=== PATIENT | male | born 1975 | race Caucasian/White ===

== ENCOUNTER 2020-10-22 13:50 | Observation (INO) ==
--- OUTSIDE RECORDS SUMMARY | 2020-10-22 13:54 | External Medical Summary | Continuity of Care Document ---
:1975 Author Name José Miguel Díaz, Provider Address Unavailable Unavailable , Care Team Providers Name Role Phone Unavailable Unavailable Unavailable Monet Díaz, Devonte Unavailable [email or web address] PCP, NO Unavailable Unavailable Unavailable Unavailable Unavailable Problems Back pain (724.5) (M54.9) Dyspnea on exertion (786.09) (R06.00) Hypertriglyceridemia (272.1) (E78.1) Hypertension (401.9) (I10) Allergies and Adverse Reactions No Known Drug Allergies (Allergy) Medications Aspirin EC 81 MG Oral Tablet Delayed Release; TAKE 1 TABLET DAILY. Arjun Refills: 0 Losartan Potassium 100 MG Oral Tablet; TAKE 1 TABLET B Y MOUTH EVERY DAY Arjun Healy Start: 24-Jan-2016 Quantity: 90 Refills: 3 hydroCHLOROthiazide 25 MG Oral Tablet; take 1 tablet b y mouth every morning Arjun Healy Start: 14-Dec-2017 Quantity: 90 Refills: 3 Procedures History of Oral Surgery Tooth Extraction Status: Completed Immunizations Immunizations not documented Family History Unknown Family Member Family history of hypertension (V17.49) Status: Active Comments: Family History (Z82.49) Family history of cardiac disorder (V17.49) Status: Active Comments: Family History (Z82.49) Social History - Smoking Status Never smoked tobacco Plan of Treatment Planned Observations Planned Goals not documented Results No Known Results Results not documented
--- OUTSIDE RECORDS SUMMARY | 2020-10-22 13:54 | External Medical Summary | Continuity of Care Document ---
:1975 Author Name José Miguel Díaz, Provider Address Unavailable Unavailable , Care Team Providers Name Role Phone Unavailable Unavailable Unavailable Monet Díaz, Devonte Unavailable [email or web address] PCP, NO Unavailable Unavailable Unavailable Unavailable Unavailable Problems Hypertension (401.9) (I10) Back pain (724.5) (M54.9) Hypertriglyceridemia (272.1) (E78.1) Dyspnea on exertion (786.09) (R06.00) Allergies and Adverse Reactions No Known Drug [...]
--- NOTE | 2020-10-22 14:22 | CT Scan Report ---
CT head/brain wo con CLINICAL HISTORY: 45 years-old Male with Stroke Alert. Acute strokelike symptoms TECHNIQUE: Multiple axial CT images of the head were obtained without contrast. A dose lowering tech nique was utilized adhering to the principles of ALARA. CT DOSE: 614.27 mGy.cm COMPARISON: None. FINDINGS: No acute intracranial hemorrhage, midline shift, intracranial mass, hydrocephalus, territorial ischem ia or abnormal extra-axial collection. The calvarium is intact. Mastoid air cells are clear. Minimal mucosal thickening of the and paranasa l sinuses. Soft tissues are unremarkable. IMPRESSION: No acute intracranial abnormality. ACT 112: Negative or not required by law. The above report was generated using voice recognition software. It may contain grammatical, syntax o r spelling errors. Electronically signed by: Indio Hughes M.D. 10/22/2020 2:20 PM
[2020-10-22] MEDS ORDERED: LABETALOL HCL IV 5 MG/ML 20ML IV STA (14:30)
[2020-10-22 14:33] LABS: Basophils # (auto) 0.02 K/uL (0-0.2); Basophils % (auto) 0.3 %; Eosinophils # (auto) 0.03 K/uL (0-0.5); Eosinophils % (auto) 0.5 %; Hematocrit (blood only) 47.1 % (42-52); Hemoglobin 16.5 g/dL (14.0-18.0); Immature Granulocytes # (auto) 0.01 K/uL (0.00-0.02); Immature Granulocytes % (auto) 0.2 %; Lymphocytes # (auto) 1.48 K/uL (1.2-3.4); Mean Corpuscular Hemoglobin 32.4 pg (25-34); Mean Corpuscular Volume 92.5 fL (80-100); Monocytes # (auto) 0.43 K/uL (0.11-0.59); Monocytes % (auto) 7.3 %; Neutrophils # (auto) 3.95 K/uL (1.4-6.5); Neutrophils % (auto) 66.7 %; Platelet Count 154 K/uL (130-400); RDW Coefficient of Variation 12.2 % (11.5-14.5); RDW Standard Deviation 41.5 fL (36.4-46.3); Red Blood Count 5.09 M/uL (4.7-6.1); White Blood Count 5.92 K/uL (4.8-10.8)
--- NOTE | 2020-10-22 14:36 | Emergency Department Note ---
History of Present Illness General Chief complaint: Illness Stated complaint: DIZZINESS/WEIRD VISION/NOT THINKING CLEARLY Time Seen by Provider: 10/22/20 14:15 Source: patient History of Present Illness Provider complaint: Dizziness Onset (ago): hour(s) Location: head Severity: moderate Pain Consistency: + constant Quality: + other (Lightheadedness) Exacerbated By: + none Associated symptoms: + headaches (Mild tightness in his forehead) and + shortness of breath (From shoveling snow); no chest pain, no cough, no fever/chills, no nausea/vomiting and no syncope This is a 45-year-old male with a prior history of hypertension not taking his medications for a year presenting with dizziness. He states that he was snowblowing and shoveling snow from 6:30 AM and when he went to his truck at about 12:30 PM he started to feel very dizzy. He describes the dizziness as a lightheadedness. He states that he has a floating sensation in an outer body experience feeling. He ate a power bar which did not seem to help. When his came to take him to the hospital he noted that he had trouble finding words and articulating himself. He still has the feeling currently. He denies any slurring of his speech. He has mild frontal headache which he describes as a tightness. He denies any numbness or weakness in his extremities, difficulty swallowing, double vision, loss of vision or blurry vision. He states that he felt short of breath but he was shoveling snow at the time. He did not have any chest discomfort or pain. He denies any fever or recent illness, cough or cold symptoms, abdominal pain, vomiting, diarrhea or urinary symptoms. He does have a history of hypertension but has not had medications in over a year. He has not seen his doctor for a long time. He denies any history of early heart disease or stroke in his family. He does state that his brother did have a blood clot in his legs and his lungs. He was on blood thinners for some time but has been taken off. He does not know what caused the blood clots. Home Medications Medication Instructions Recorded Confirmed Type acetaminophen [Tylenol] 325 mg PO QID PRN 10/22/20 10/22/20 History aspirin [Aspir-Low] 81 mg PO DAILY 10/22/20 10/22/20 History Allergies Allergy/AdvReac Type Severity Reaction Status Date / Time No Known Allergies Allergy Unverified 10/22/20 15:31 Past Med/Surg History Medical History (Updated 10/22/20 @ 20:01 by Mervin Singleton MD) Hypertension Family History (Updated 10/22/20 @ 14:40 by Mervin Singleton MD) Brother Pulmonary embolism Social History Smoking Status: Former smoker Second Hand Exposure: No; Do You Dip or Chew Tobacco: No; Hx Alcohol Use: Yes Alcohol type: beer Hx Substance Use: No Preferred Language: Faroese Communication Ability: Effective Abattoir Supervisor Required: No Beliefs That Will Affect Care: None Current Living Situation: Spouse Other Information That Helps Us Care for You: No Feels Safe at Home: Yes Safety Concerns: Feels Safe At This Time Assistive Devices: None Review of Systems See HPI for pertinent positives & negatives. and A total of 10 systems reviewed and were otherwise negative Physical Exam Vital Signs Vital Signs - 24 hr 10/22/20 14:06 10/22/20 14:20 10/22/20 14:22 Temperature 36.4 C L Temperature Source Temporal Artery Scan Pulse Rate 96 H 86 Pulse Rate [Apical] 85 Pulse Rate from SpO2 Sensor 87 Pulse Rhythm [Apical] Regular Respiratory Rate 20 18 17 Respiratory Effort / Characteristics Non-Labored Spontaneous Non-Labored Respiratory Depth Normal Normal Respiratory Pattern Regular Blood Pressure 219/125 H 213/108 H Blood Pressure [Left Arm] 213/108 H Blood Pressure Mean 156 143 Blood Pressure Mean [Left Arm] 143 Blood Pressure Position [Left Arm] Lying Pulse Oximetry 99 99 100 Oxygen Delivery Method Room Air Room Air Oxygen Flow Rate Sepsis Recent Fever Within 48 Hours No Sepsis New/Unexplained Change in Mental Status N/A Sepsis Action Taken by Nursing No Action Required 10/22/20 14:23 10/22/20 14:27 10/22/20 14:30 Temperature Temperature Source Pulse Rate 88 80 Pulse Rate [Apical] Pulse Rate from SpO2 Sensor 87 84 Pulse Rhythm [Apical] Respiratory Rate 18 17 Respiratory Effort / Characteristics Respiratory Depth Respiratory Pattern Blood Pressure 192/100 H Blood Pressure [Left Arm] Blood Pressure Mean 130 Blood Pressure Mean [Left Arm] Blood Pressure Position [Left Arm] Pulse Oximetry 99 99 99 Oxygen Delivery Method Room Air Oxygen Flow Rate 0 Sepsis Recent Fever Within 48 Hours Sepsis New/Unexplained Change in Mental Status Sepsis Action Taken by Nursing 10/22/20 14:43 10/22/20 14:44 10/22/20 14:45 Temperature Temperature Source Pulse Rate 87 88 86 Pulse Rate [Apical] Pulse Rate from SpO2 Sensor 88 89 85 Pulse Rhythm [Apical] Respiratory Rate 15 16 17 Respiratory Effort / Characteristics Respiratory Depth Respiratory Pattern Blood Pressure 193/110 H 190/97 H Blood Pressure [Left Arm] Blood Pressure Mean 137 128 Blood Pressure Mean [Left Arm] Blood Pressure Position [Left Arm] Pulse Oximetry 98 98 97 Oxygen Delivery Method Room Air Oxygen Flow Rate Sepsis Recent Fever Within 48 Hours Sepsis New/Unexplained Change in Mental Status Sepsis Action Taken by Nursing 10/22/20 14:50 10/22/20 14:54 10/22/20 15:00 Temperature Temperature Source Pulse Rate 81 83 73 Pulse Rate [Apical] 73 Pulse Rate from SpO2 Sensor 80 82 74 Pulse Rhythm [Apical] Regular Respiratory Rate 20 16 Respiratory Effort / Characteristics Non-Labored Spontaneous Respiratory Depth Normal Respiratory Pattern Blood Pressure 207/121 H 207/121 H 183/99 H Blood Pressure [Left Arm] 183/99 H Blood Pressure Mean 149 149 127 Blood Pressure Mean [Left Arm] 127 Blood Pressure Position [Left Arm] Sitting Pulse Oximetry 99 97 98 Oxygen Delivery Method Room Air Oxygen Flow Rate Sepsis Recent Fever Within 48 Hours Sepsis New/Unexplained Change in Mental Status Sepsis Action Taken by Nursing 10/22/20 15:12 10/22/20 15:28 10/22/20 15:42 Temperature Temperature Source Pulse Rate 71 Pulse Rate [Apical] 84 Pulse Rate from SpO2 Sensor 72 Pulse Rhythm [Apical] Regular Respiratory Rate 16 14 Respiratory Effort / Characteristics Non-Labored Respiratory Depth Normal Respiratory Pattern Blood Pressure 158/95 H 172/98 H Blood Pressure [Left Arm] 165/108 H Blood Pressure Mean 116 122 Blood Pressure Mean [Left Arm] 127 Blood Pressure Position [Left Arm] Sitting Pulse Oximetry 97 97 Oxygen Delivery Method Room Air Oxygen Flow Rate Sepsis Recent Fever Within 48 Hours Sepsis New/Unexplained Change in Mental Status Sepsis Action Taken by Nursing 10/22/20 16:00 10/22/20 16:30 Temperature Temperature Source Pulse Rate 80 68 Pulse Rate [Apical] Pulse Rate from SpO2 Sensor 74 68 Pulse Rhythm [Apical] Respiratory Rate 17 15 Respiratory Effort / Characteristics Respiratory Depth Respiratory Pattern Blood Pressure 170/106 H 157/98 H Blood Pressure [Left Arm] Blood Pressure Mean 127 117 Blood Pressure Mean [Left Arm] Blood Pressure Position [Left Arm] Pulse Oximetry 98 97 Oxygen Delivery Method Oxygen Flow Rate Sepsis Recent Fever Within 48 Hours Sepsis New/Unexplained Change in Mental Status Sepsis Action Taken by Nursing Constitutional: Vital signs reviewed. Eyes: Pupils are equal round reactive to light. Conjunctiva are noninjected. ENT: Pharynx is clear without erythema or exudate. Mucous membranes are moist. Neck supple without meningeal signs. Respiratory: Clear to auscultation bilaterally. Breath sounds are equal bilaterally. Cardiovascular: Regular rate and rhythm. No rubs or gallops. GI: Soft, nondistended and nontender. Bowel sounds are present. Musculoskeletal: No peripheral edema. No lower extremity tenderness. Integumentary: No cyanosis. or jaundice. Neurologic: The patient is awake and alert. Cranial nerves II-XII are intact. Motor is 5 out of 5 all extremities. Sensation is intact to light touch all extremities. Normal speech although with some difficulty finding words at times.. No pronator drift. No limb ataxia. Psychiatric: Slightly anxious. Course Administered Medications Discontinued Medications Aspirin (Aspirin 81 Mg Chew) 324 mg PO NOW ONE Stop: 10/22/20 16:38 Last Admin: 10/22/20 16:52 Dose: 324 mg Documented by: [id number] Ioversol (Optiray 320 125ml) 120 ml IV ONCE ONE Stop: 10/22/20 14:42 Last Admin: 10/22/20 14:43 Dose: 120 ml Documented by: [id number] Labetalol HCl (Labetalol Hcl Iv 5 Mg/Ml 20ml) 5 mg IV NOW STA Stop: 10/22/20 14:31 Last Admin: 10/22/20 14:48 Dose: 5 mg Documented by: [id number] Cosigned by: [id number] Critical Care Time Critical Care Time: Yes Total Critical Care Time: 35 I have personally spent approximately 35 minutes of critical care time in the direct management of this patient. This includes bedside care, interpretation of diagnostic studies, and testing, discussion with consultants, patient, and family members, and other required patient management activities. These minutes are in excess of all separately billable procedures. Medical Decision Making Differential Diagnosis TIA, CVA, intracranial hemorrhage, cerebral aneurysm, intracranial mass, anginal equivalent, metabolic derangement Medical Records Attestation: I reviewed the patient's medical records. I did perform a limited focused review of portions of the patient's old chart on the electronic medical record. The patient has had no recent pertinent visits to this hospital. Home Medications Current Medication List: was personally reviewed by me Laboratory Data Attestation: I reviewed the patient's lab results. Result diagrams: 10/22/20 14:25 10/22/20 14:25 Lab Results 10/22/20 10/22/20 10/22/20 Range/Units 14:22 14:25 14:25 WBC 5.92 (4.8-10.8) K/uL RBC 5.09 (4.7-6.1) M/uL Hgb 16.5 (14.0-18.0) g/dL Hct 47.1 (42-52) % MCV 92.5 (80-100) fL MCH 32.4 (25-34) pg MCHC 35.0 (32-36) g/dL RDW Std Deviation 41.5 (36.4-46.3) fL RDW Coeff of Bro 12.2 (11.5-14.5) % Plt Count 154 (130-400) K/uL MPV 10.0 (7.4-10.4) fL Immature Gran % (Auto) 0.2 % Neut % (Auto) 66.7 % Lymph % (Auto) 25.0 % [place] % (Auto) 7.3 % Eos % (Auto) 0.5 % Baso % (Auto) 0.3 % Neut # (Auto) 3.95 (1.4-6.5) K/uL Lymph # (Auto) 1.48 (1.2-3.4) K/uL [place] # (Auto) 0.43 (0.11-0.59) K/uL Eos # (Auto) 0.03 (0-0.5) K/uL Baso # (Auto) 0.02 (0-0.2) K/uL Immature Gran # (Auto) 0.01 (0.00-0.02) K/uL PT 9.9 (9.0-12.0) Seconds INR 1.0 (0.9-1.1) APTT 24.7 (21.0-31.0) Seconds PTT Ratio 0.9 Sodium (136-145) mmol/L Potassium (3.5-5.1) mmol/L Chloride (98-107) mmol/L Carbon Dioxide (21-32) mmol/L Anion Gap (3-11) BUN (7-18) mg/dl Creatinine (0.6-1.4) mg/dl Est Cr Clr Drug Dosing ml/min Est GFR ( Amer) Est GFR (Non-Af Amer) BUN/Creatinine Ratio (10-20) Glucose (70-99) mg/dl POC Glucose 134 H (70-99) mg/dl Calcium (8.5-10.1) mg/dl Magnesium (1.8-2.4) mg/dl Total Bilirubin (0.2-1) mg/dl AST (15-37) U/L ALT (12-78) U/L Alkaline Phosphatase (45-117) U/L Troponin I (0-0.045) ng/ml Total Protein (6.4-8.2) gm/dl Albumin (3.4-5.0) gm/dl Globulin (2.5-4.0) gm/dl Albumin/Globulin Ratio (0.9-2) Specimen Hemolysis Blood Type Antibody Screen 10/22/20 10/22/20 Range/Units 14:25 14:25 WBC (4.8-10.8) K/uL RBC (4.7-6.1) M/uL Hgb (14.0-18.0) g/dL Hct (42-52) % MCV (80-100) fL MCH (25-34) pg MCHC (32-36) g/dL RDW Std Deviation (36.4-46.3) fL RDW Coeff of Bro (11.5-14.5) % Plt Count (130-400) K/uL MPV (7.4-10.4) fL Immature Gran % (Auto) % Neut % (Auto) % Lymph % (Auto) % [place] % (Auto) % Eos % (Auto) % Baso % (Auto) % Neut # (Auto) (1.4-6.5) K/uL Lymph # (Auto) (1.2-3.4) K/uL [place] # (Auto) (0.11-0.59) K/uL Eos # (Auto) (0-0.5) K/uL Baso # (Auto) (0-0.2) K/uL Immature Gran # (Auto) (0.00-0.02) K/uL PT (9.0-12.0) Seconds INR (0.9-1.1) APTT (21.0-31.0) Seconds PTT Ratio Sodium 136 (136-145) mmol/L Potassium 3.7 (3.5-5.1) mmol/L Chloride 102 (98-107) mmol/L Carbon Dioxide 28 (21-32) mmol/L Anion Gap 7.0 (3-11) BUN 11 (7-18) mg/dl Creatinine 0.99 (0.6-1.4) mg/dl Est Cr Clr Drug Dosing 117.1 ml/min Est GFR ( Amer) 105.4 Est GFR (Non-Af Amer) 91.0 BUN/Creatinine Ratio 11.6 (10-20) Glucose 129 H (70-99) mg/dl POC Glucose (70-99) mg/dl Calcium 9.5 (8.5-10.1) mg/dl Magnesium 2.2 (1.8-2.4) mg/dl Total Bilirubin 0.7 (0.2-1) mg/dl AST 32 (15-37) U/L ALT 50 (12-78) U/L Alkaline Phosphatase 102 (45-117) U/L Troponin I < 0.015 (0-0.045) ng/ml Total Protein 7.8 (6.4-8.2) gm/dl Albumin 3.9 (3.4-5.0) gm/dl Globulin 3.9 (2.5-4.0) gm/dl Albumin/Globulin Ratio 1.0 (0.9-2) Specimen Hemolysis Blood Type O Negative Antibody Screen NEGATIVE Imaging Data Radiologist's Impression: CT head/brain wo con CLINICAL HISTORY: 45 years-old Male with Stroke Alert. Acute strokelike symptoms TECHNIQUE: Multiple axial CT images of the head were obtained without contrast. A dose lowering technique was utilized adhering to the principles of ALARA. CT DOSE: 614.27 mGy.cm COMPARISON: None. FINDINGS: No acute intracranial hemorrhage, midline shift, intracranial mass, hydrocephalus, territorial ischemia or abnormal extra-axial collection. The calvarium is intact. Mastoid air cells are clear. Minimal mucosal thickening of the and paranasal sinuses. Soft tissues are unremarkable. IMPRESSION: No acute intracranial abnormality. ACT 112: Negative or not required by law. The above report was generated using voice recognition software. It may contain grammatical, syntax or spelling errors. Electronically signed by: Indio Hughes M.D. 10/22/2020 2:20 PM Dictated: 10/22/20 1418 Transcribed: 10/22/20 1418 XR chest 1V portable HISTORY: Stroke symptoms. COMPARISON: Chest 12/06/2015. FINDINGS: No pneumothorax. No pleural effusions. The lungs are clear. The heart remains mildly enlarged. No evidence for pulmonary edema. IMPRESSION: No significant change compared to the prior study. No acute process. Stable mild cardiomegaly. ACT 112: Negative or not required by law. Electronically signed by: Chandler Moore M.D. 10/22/2020 2:37 PM Dictated: 10/22/20 1436 Transcribed: 10/22/[address] angio head w con CLINICAL HISTORY: Stroke Like Symptoms TECHNIQUE: CT angiography of the head was performed in a dynamic helical fashion during intravenous administration of 120 cc of Optiray 320. MIP imaging was performed. A dose lowering technique was utilized adhering to the principles of ALARA. CT DOSE: 663.73 mGy.cm COMPARISON STUDY: No previous studies for comparison. FINDINGS: There are no lesion suspicious for aneurysm. There are no major intracranial branch occlusions. The dural venous sinuses appear patent. There is mild right maxillary sinus mucosal thickening. IMPRESSION: Normal study. ACT 112: Negative or not required by law. Electronically signed by: Mark Cedeno M.D. 10/22/2020 2:52 PM Dictated: 10/22/20 1448Transcribed: 10/22/[address] angio neck with con CLINICAL HISTORY: Stroke Like Symptoms COMPARISON STUDY: No previous studies for comparison. TECHNIQUE: CT angiography was performed from the aortic arch to the skull base. MIP imaging was performed. The patient was scanned in a dynamic helical fashion during intravenous administration of 120 cc of Optiray 320. A dose lowering technique was utilized adhering to the principles of ALARA. CT DOSE: Technique: CT angiogram of the carotid and vertebral arteries was obtained using intravenous contrast and 3-D reconstruction. NASCET criteria was utilized. Findings: The right carotid revealed no evidence of aneurysm and no evidence of dissection. There is no evidence of hemodynamic significant stenosis. The left carotid revealed no evidence of hemodynamic significant stenosis. There is no evidence of aneurysm. There is no evidence of dissection. There is no evidence of hemodynamically significant vertebral stenosis. There is no evidence of vertebral dissection. IMPRESSION: No evidence of hemodynamically significant carotid or vertebral artery stenosis. No evidence of dissection. ACT 112: Negative or not required by law. Electronically signed by: Mark Cedeno M.D. 10/22/2020 2:48 PM Dictated: 10/22/20 1445Transcribed: 10/22/20 1446 ECG Data Attestation: I personally reviewed and interpreted this ECG as follows: Indication: + other (Dizziness and strokelike symptoms) Rate (beats per minute): 85 Rhythm: + normal sinus ECG [place]: + Normal ECG ST segments: no ST elevation ECG Findings: no PVCs MDM Narrative The patient was made a stroke alert by the triage nurse. I did evaluate the patient as noted above. He has a NIH stroke scale of 1. He is not a candidate for IV TPA due to his minimal symptoms. IV access was established. I did place an order for continuous cardiac monitoring. The monitor showed normal sinus rhythm at a rate of 80 bpm. I did order and personally review the patient's 12- lead EKG as described above. He has no dysrhythmia or acute ischemia. He is severely hypertensive and so I did treat him with labetalol 5 mg IV. His blood pressure did improve significantly. He does state that he took an aspirin today. I did order and personally reviewed the images of the patient's chest x- ray as described above. He has mild stable cardiomegaly without acute process. I did order and review the patient's blood work as noted in the electronic medical record. CBC and electrolytes are unremarkable. Troponin is negative. Renal function is preserved. I did order a CT of the head and CT angiogram of the head and neck. I did review the images myself as well as the radiology report as described above. There is no evidence of acute process. I did discuss case with the stroke neurologist. She did evaluate the patient via video. We did discuss the case and she recommended a TIA work-up. On harley ssessment the patient does not appear to have any significant symptoms. His blood pressure is improved. I did recommend hospitalization for TIA work-up as well as repeat cardiac biomarkers. I did discuss case with the hospitalist and caseworker intake. Impression & Plan Expressive aphasia, Hypertensive emergency, Dizziness Discharge Plan Visit Data Chief Complaint: Illness Stated Complaint: DIZZINESS/WEIRD VISION/NOT THINKING CLEARLY ED Provider: Mervin Singleton Discharge Problem: Expressive aphasia, Hypertensive emergency, Dizziness Patient Disposition: Admitted As Inpatient Discharge Instructions Interventions: ED Discharge Assessment Last Done: 10/22/20 18:39
[2020-10-22] MEDS ORDERED: OPTIRAY 320 125ml IV ONE (14:41)
--- NOTE | 2020-10-22 14:49 | CT Scan Report ---
CT angio neck with con CLINICAL HISTORY: Stroke Like Symptoms COMPARISON STUDY: No previous studies for comparison. TECHNIQUE: CT angiography was performed from the aortic arch to the skull base. MIP imaging was perfo rmed. The patient was scanned in a dynamic helical fashion during intravenous administration of 120 c c of Optiray 320. A dose lowering technique was utilized adhering to the principles of ALARA. CT DOSE: Technique: CT angiogram of the carotid and vertebral arteries was obtained using intravenous contrast and 3-D reconstruction. NASCET criteria was utilized. Findings: The right carotid revealed no evidence of aneurysm and no evidence of dissection. There is no evidenc e of hemodynamic significant stenosis. The left carotid revealed no evidence of hemodynamic significant stenosis. There is no evidence of an eurysm. There is no evidence of dissection. There is no evidence of hemodynamically significant vertebral stenosis. There is no evidence of verte bral dissection. IMPRESSION: No evidence of hemodynamically significant carotid or vertebral artery stenosis. No evidence of disse ction. ACT 112: Negative or not required by law. Electronically signed by: Mark Cedeno M.D. 10/22/2020 2:48 PM
[2020-10-22 14:53] LABS: Partial Thromboplastin Ratio 0.9; Partial Thromboplastin Time 24.7 Seconds (21.0-31.0); Prothrombin Time 9.9 Seconds (9.0-12.0)
--- NOTE | 2020-10-22 14:54 | CT Scan Report ---
CT angio head w con CLINICAL HISTORY: Stroke Like Symptoms TECHNIQUE: CT angiography of the head was performed in a dynamic helical fashion during intravenous a dministration of 120 cc of Optiray 320. MIP imaging was performed. A dose lowering technique was util ized adhering to the principles of ALARA. CT DOSE: 663.73 mGy.cm COMPARISON STUDY: No previous studies for comparison. FINDINGS: There are no lesion suspicious for aneurysm. There are no major intracranial branch occlusi ons. The dural venous sinuses appear patent. There is mild right maxillary sinus mucosal thickening. IMPRESSION: Normal study. ACT 112: Negative or not required by law. Electronically signed by: Mark Cedeno M.D. 10/22/2020 2:52 PM
[2020-10-22 15:38] LABS: Alanine Aminotransferase 50 U/L (12-78); Albumin Level 3.9 gm/dl (3.4-5.0); Alkaline Phosphatase 102 U/L (45-117); Aspartate Aminotransferase 32 U/L (15-37); BUN Creatinine Ratio 11.6 (10-20); Bilirubin,Total 0.7 mg/dl (0.2-1); Blood Urea Nitrogen 11 mg/dl (7-18); Calcium 9.5 mg/dl (8.5-10.1); Carbon Dioxide 28 mmol/L (21-32); Chloride 102 mmol/L (98-107); Creatinine Clr Calc Pharmacy 117.1 ml/min; Est GFR (African American) 105.4; Globulin 3.9 gm/dl (2.5-4.0); Glucose 129 mg/dl (70-99); Magnesium 2.2 mg/dl (1.8-2.4); Potassium 3.7 mmol/L (3.5-5.1); Sodium 136 mmol/L (136-145); Total Protein 7.8 gm/dl (6.4-8.2); Troponin I < 0.015 ng/ml (0-0.045)
[2020-10-22] MEDS ORDERED: ASPIRIN 81 MG CHEW PO ONE (16:37)
--- NOTE | 2020-10-22 16:39 | History & Physical Report ---
Date of Service October 22, 2020 Assessment & Plan (1) Stroke-like symptoms: New onset vertigo in setting of hypertensive urgency. Earlier concern for expressive dysphasia however this appears to be more consistent with generalized confusion. Complete stroke up with MRI brain without contrast TTE HbA1c and lipid panel with a.m. labs PT/OT/speech evals Consult neurology (2) Hypertensive urgency: Labetalol given in ER. Will avoid over-correction. Rx sBP > 180 if no CVA on MRI, > 200 if CVA on MRI. (3) Vertigo: Examination consistent with peripheral cause although associated hypertension and no definitive peripheral pathology concerning for CVA. Unable to reproduce with sridevi-hallpike (although limited neck extension on bed) MRI IAC w w/o contrast Admission and Anticipated Discharge Date Admission Date: Oct 23, 2020 History of Present Illness Chief Complaint: Stroke-like symptoms Primary Care Provider: Devonte Healy MD Robin Weiner is a 45 year old male with hypertension who presents to the ER with stroke-like symptoms. This morning he has been snowblowing and shovelling snow from 6:30am. At around 12:30pm he went to his truck and started to get dizzy which he feels was like motion sickness and the world was moving around him. He denies any chest pain, shortness of breath, vision loss, diplopia, change in hearing/speech, facial droop, extremity motor weakness or sensory change. He ate a power bar but this did not appear to help. Dizziness was initially intense but then gradually improved, worse whenever he would rotate his head in either direction. He took a dose of carvedilol from a old prescription, although unknown dose with no change in his dizziness. He managed to drive himself however due to continued vertigo on head movement and when he talked to his he was confused about where he had been he came to the ER. He denies any problems understanding his or any problems finding the right word he was more generally confused and not thinking clearly. He previously was under the care of Dr Healy and was treated with hypertension with carvedilol however when he ran out of medication and with the current pandemic his clinic visit was cancelled and he never followed up on this. In the ER CT head, CTA head/neck unremarkable. BP 219/125 on arrival treated with Labetalol 5mg IV with resolution of his dizziness (total duration around 2 hours). Telestroke activated - recommended no tPA (presumably due to resolved symptoms), complete stroke workup and aspirin (of note the patient was already taking this prior). He was referred to medicine for admission and ongoing management of TIA/hypertensive emergency. Allergies Allergy/AdvReac Type Severity Reaction Status Date / Time No Known Allergies Allergy Unverified 10/22/20 15:31 Home Medications Medication Instructions Recorded Confirmed Type acetaminophen [Tylenol] 325 mg PO QID PRN 10/22/20 10/22/20 History aspirin [Aspir-Low] 81 mg PO DAILY 10/22/20 10/22/20 History Past Med/Surg History Medical History Hypertension Family History Brother Pulmonary embolism Social History Smoking Status: Former smoker Second Hand Exposure: No; Do You Dip or Chew Tobacco: No; Hx Alcohol Use: Yes Alcohol type: beer Hx Substance Use: No Preferred Language: South Korean Communication Ability: Effective City Tax Auditor Required: No Beliefs That Will Affect Care: None Current Living Situation: Spouse Other Information That Helps Us Care for You: No Feels Safe at Home: Yes Safety Concerns: Feels Safe At This Time Assistive Devices: None Review of Systems Review of Systems: All systems reviewed & are unremarkable except as noted in HPI & below Physical Exam Constitutional: well developed and well nourished; no acute distress Eyes: PERRL, conjunctivae normal, anicteric sclerae normal visual sung by confrontation, EOM intact bilaterally and + nystagmus (both eyes, fast beats to left, L > R lateral gaze) ENMT: external ear and nose normal, oropharynx normal Ears: no hearing impairment (grossly normal), no EAC abnormality, no TM abnormality and no mastoid abnormality Neck: normal visual inspection and trachea midline Respiratory: normal respiratory effort, lungs clear to auscultation Cardiovascular: Rate/Rhythm: regular rate and regular rhythm Heart Sounds: no murmur Vessels: no JVD Extremities: normal capillary refill; no calf tenderness and no pedal edema Gastrointestinal (Abdomen): normal bowel sounds, soft, nontender, no hepatosplenomegaly Musculoskeletal: no cyanosis or clubbing, extremities motor strength 5/5 Skin: no rashes, warm and dry Neurologic: deep tendon reflexes 2+ bilaterally, moves all extremities and awake; no focal motor deficits and not confused Speech / Cognition: normal speech, no expressive aphasia and no receptive aphasia Motor/Sensory: no tremor and no pronator drift Cranial Nerves: PERRL, EOM intact bilaterally, normal facial strength, tongue midline, normal hearing and able to rotate head bilaterally; + abnormal accommodation (reduced) and + nystagmus (as above) Sridevi-hallpike did not reproduce vertigo sensation Bi-directional rotation of head reproduced vertigo No vertical scew Psychiatric: A+Ox3, euthymic affect Results & Data Results & Data ([facility]) Vital Signs (Past 12 Hours) Vital Signs Temp Pulse Pulse Resp BP BP Pulse Ox 10/22/20 15:12 84 16 165/108 H 97 10/22/20 15:00 73 16 183/99 H 97 10/22/20 14:50 81 20 207/121 H 99 10/22/20 14:45 86 17 190/97 H 97 10/22/20 14:44 88 16 193/110 H 98 10/22/20 14:43 87 15 98 10/22/20 14:30 80 17 192/100 H 99 10/22/20 14:27 99 10/22/20 14:23 88 18 99 10/22/20 14:22 85 17 213/108 H 100 10/22/20 14:20 86 18 213/108 H 99 10/22/20 14:06 36.4 C L 96 H 20 219/125 H 99 Diagnostic Findings XR chest 1V portable IMPRESSION: No significant change compared to the prior study. No acute process. Stable mild cardiomegaly. CT head/brain wo con IMPRESSION: No acute intracranial abnormality. CT angio head w con IMPRESSION: Normal study. CT angio neck with con IMPRESSION: No evidence of hemodynamically significant carotid or vertebral artery stenosis. No evidence of dissection. Medications Administered ER medications given: Labetalol 5 mg IV ECG Indication: other (Strokelike symptoms) Rate (beats per minute): 85 Rhythm: normal sinus Findings: no acute ischemic change Comparison ECG Date: from (December 06, 2015) Change: no significant change Code Status & VTE Plan Code Status Full VTE Prophylaxis Plan VTE Prophylaxis will be ordered: No Reason for no VTE drug order: Treatment not indicated Reason for no VTE mechanical prophylaxis: Treatment not indicated PG Care Time/CCT Total # of Minutes Spent Total Time Spent with Patient: Total time spent is greater than 50% in coordination of care (as documented) at patient's floor/unit and/or counseling patient: Coding Level of Care Code 18925 OBS Care - Level 3 Diagnoses Stroke-like symptoms R29.90 Hypertensive urgency I16.0 Vertigo R42
--- NOTE | 2020-10-22 19:03 | Magnetic Resonance Report ---
MR brain wo con HISTORY: 45 years-old Male Expressive dysphasia, dizziness acute strokelike symptoms COMPARISON: CT head with CTA head and neck of same day TECHNIQUE: Multiplanar multisequence MRI of the brain was obtained without the use of IV contrast FINDINGS: Client Experience Administrator localizer images demonstrate no gross extracranial abnormality. No restricted diffusion to sugg est acute or subacute infarct. No acute intracranial hemorrhage, midline shift, abnormal extra-axial collection, hydrocephalus or intracranial mass. Mild to moderate scattered subcentimeter T2/FLAIR hyp erintensities are noted within the white matter of the cerebral hemispheres in a predominantly subcor tical distribution. The cerebral venous sinuses and major arterial flow voids appear patent. Mastoid air cells are clear. Mild mucosal thickening of the paranasal sinuses. The skull, orbits and soft tissues are unremarkabl e. IMPRESSION: 1. No acute intracranial abnormality, specifically there is no evidence of acute or subacute infarct. 2. Mild to moderate scattered T2/FLAIR hyperintensities throughout the subcortical white matter of th e bilateral cerebral hemispheres. These findings are nonspecific however chronic microvascular ischem ic disease is the primary differential consideration. ACT 112: Negative or not required by law. The above report was generated using voice recognition software. It may contain grammatical, syntax o r spelling errors. Electronically signed by: Indio Hughes M.D. 10/22/2020 7:02 PM
[2020-10-22] MEDS ORDERED: ONDANSETRON INJ 2 MG/ML 2 ML VIAL IV PRN (19:27)
[2020-10-22] MEDS ORDERED: ALUMINUM/MAGNESIUM SUSP 30 ML UDC PO PRN (19:27)
[2020-10-22] MEDS ORDERED: POLYETHYLENE (MIRALAX) 17 GM PACK PO PRN (19:27)
[2020-10-22] MEDS ORDERED: ACETAMINOPHEN 325 MG TAB PO PRN (19:27)
[2020-10-22] MEDS ORDERED: PHARMACIST DISCHARGE MED REC CONSULT PRN (19:27)
--- NOTE | 2020-10-23 05:35 | Electrocardiogram Report ---
Test Reason : Blood Pressure : / mmHG Vent. Rate : 085 BPM Atrial Rate : 085 BPM P-R Int : 150 ms QRS Dur : 092 ms QT Int : 362 ms P-R-T Axes : 054 038 027 degrees QTc Int : 430 ms Normal sinus rhythm with sinus arrhythmia Normal ECG When compared with ECG of 06-DEC-2015 12:01, No significant change was found Confirmed by Abelardo Sullivan ([id number]) on 10/23/2020 5:34:41 AM Referred By: Confirmed By:Abelardo Sullivan
[2020-10-23 07:12] LABS: Basophils # (auto) 0.01 K/uL (0-0.2); Basophils % (auto) 0.2 %; Eosinophils # (auto) 0.06 K/uL (0-0.5); Eosinophils % (auto) 1.5 %; Hematocrit (blood only) 46.3 % (42-52); Hemoglobin 15.9 g/dL (14.0-18.0); Lymphocytes # (auto) 1.36 K/uL (1.2-3.4); Lymphocytes % (auto) 33.2 %; Mean Corpuscular Hemoglobin 31.8 pg (25-34); Mean Corpuscular Hgb Conc 34.3 g/dL (32-36); Mean Corpuscular Volume 92.6 fL (80-100); Mean Platelet Volume 9.8 fL (7.4-10.4); Monocytes # (auto) 0.34 K/uL (0.11-0.59); Monocytes % (auto) 8.3 %; Neutrophils # (auto) 2.33 K/uL (1.4-6.5); Neutrophils % (auto) 56.8 %; Platelet Count 130 K/uL (130-400); RDW Coefficient of Variation 12.2 % (11.5-14.5)
[2020-10-23 07:31] LABS: BUN Creatinine Ratio 11.5 (10-20); Calcium 8.8 mg/dl (8.5-10.1); Creatinine Clr Calc Pharmacy 114.3 ml/min; Est GFR (African American) 102.9; Est GFR (Non-African American) 88.8; Potassium 3.8 mmol/L (3.5-5.1)
[2020-10-23 08:00] LABS: Estimated Average Glucose 117 mg/dl; Hemoglobin A1C 5.7 % (4.5-5.6)
--- NOTE | 2020-10-23 08:42 | Neurology Consultation ---
Date of Consultation October 23, 2020 Assessment & Plan (1) Hypertensive urgency: (2) Stroke-like symptoms: Resolved episode of dizziness, abnormal sensation of motion/disequilibrium with associated confusion/word finding difficulty occurring in the context of hypertensive urgency. No evidence of acute or subacute stroke on MRI although there is a mild to moderate degree of chronic microvascular disease. He has a past medical history of hypertension and has been noncompliant with treatment. CT angiography of the head and neck is negative for any significant vascular lesions. Lipid panel appears unremarkable. His hemoglobin A1c is mildly elevated. He is a former smoker, quit 10 years ago. Patient will need ongoing management of hypertension and monitoring of possible prediabetes as an outpatient, he will need to establish with a PCP. Follow-up the results of echocardiography. Consider obtaining a 30-day cardiac event monitor as an outpatient. Continue with daily low-dose aspirin. No further immediate recommendations. Patient probably does not need additional outpatient neurological follow-up for this issue. Please contact me if I may be of further assistance. History of Present Illness Reason for Consultation: Strokelike symptoms Requesting Physician: Anibal Giordano MD Attending Physician: Bryant Dinh DO History of Present Illness The patient is a 45-year-old male with a chief complaint of dizziness which he describes as a nonvertiginous sensation of motion that began suddenly yesterday after he was outside shoveling snow. He had some associated confusion or word finding difficulty at that time as well. He does not recall experiencing any associated headache, vision change, or focal weakness. His blood pressure was 219/125, he was treated with labetalol. His symptoms significantly improved. He did have a telestroke consultation. tPA was not administered. This morning, he is feeling well, no residual neurological symptoms. Past medical history is notable for hypertension for which he indicates he was evaluated by Dr. Healy, cardiology, in the past and given a prescription for an antihypertensive. He states that he took this medication for a little while but ultimately did not continue with it and has not had a follow-up with Dr. Healy in quite some time. He does not see a family doctor regularly. He denies a history of prior stroke or TIA. He denies a family history of stroke or intracerebral hemorrhage. He is a former smoker, quit about 10 years ago. Allergies Allergy/AdvReac Type Severity Reaction Status Date / Time No Known Allergies Allergy Unverified 10/22/20 15:31 Home Medications Medication Instructions Recorded Confirmed Type acetaminophen [Tylenol] 325 mg PO QID PRN 10/22/20 10/22/20 History aspirin [Aspir-Low] 81 mg PO DAILY 10/22/20 10/22/20 History Patient History Medical History Hypertension Family History Brother Pulmonary embolism Social History Smoking Status: Former smoker Second Hand Exposure: No; Do You Dip or Chew Tobacco: No; Hx Alcohol Use: Yes Alcohol type: beer Hx Substance Use: No Preferred Language: Welsh Communication Ability: Effective Network Relations Consultant Required: No Beliefs That Will Affect Care: None Current Living Situation: Spouse Other Information That Helps Us Care for You: No Feels Safe at Home: Yes Safety Concerns: Feels Safe At This Time Assistive Devices: None Review of Systems Constitutional: no fever and no chills Eyes: no blind spots and no diplopia Ear, Nose, Mouth, Throat: no ear pain, no tinnitus and no hearing loss Respiratory: no cough and no dyspnea Cardiovascular: no chest pain and no palpitations Gastrointestinal: no nausea and no vomiting Genitourinary: no dysuria Musculoskeletal: no myalgia Integumentary: no rash and no lesions Neurologic: as per Subjective / HPI, + dizziness and + confusion; no localized weakness, no loss of sensation, no lack of coordination, no tremor(s), no seizure-like activity, no syncope and no headache(s) Psychiatric: no depression and no anxiety Hematologic / Lymphatic: no easy bleeding and no easy bruising Exam (Neuro) Constitutional: well developed and well nourished; no acute distress Eyes: normal visual sung by confrontation, PERRL, normal accommodation and EOM intact bilaterally; no fundoscopic abnormality, no nystagmus and no papilledema Cardiovascular: Vessels: normal carotid upstroke; no carotid bruit Neurologic: Oriented to:: Person, Place and Time Memory: Short Term Intact and Remote Intact Attention: Span Intact and Concentration Intact Language: Naming Objects and Repeating Phrases Speech Fluency: negative Dysarthria Speech Aphasia: negative Aphasia Fund of Knowledge: Current Events, Past History and Vocabulary Cranial Nerves: Normal II (Visual sung full to confrontation, visual acuity normal), III, IV, (Pupils equal round reactive to light and accommodation, eye movements normal), V (Facial sensation intact), VII (There is no facial droop or weakness), VIII (Hearing intact), IX, X (Palate elevates to midline), XI (Shoulder shrug intact) and XII (Tongue protrudes to midline) Motor Strength: Normal Lower Extremities and Normal Upper Extremities; negative Pronator Drift Motor Tone: Normal Lower Extremities and Normal Upper Extremities Muscle Bulk/Involuntary Movements: No Involuntary Movements; negative Muscle Atrophy Sensation: Light Touch Intact, Pain/Temperature Intact, Vibration Intact and Proprioception Intact Coordination: Normal; negative Limited Balance, Dysdiadochokinesia, Finger-Nose Abnormal and Heel-Maldonado Abnormal Deep Tendon Reflexes: Rt Triceps: 2+, Lt Triceps: 2+, Rt Biceps: 2+, Lt Biceps: 2+, Rt Brachioradialis: 2+, Lt Brachioradialis: 2+, Rt Patellar: 2+, Lt Patellar: 2+, Rt Ankle: 2+ and Lt Ankle: 2+ Special Tests: negative Babinski Present Gait: Normal Station and Gait Results & Data ([facility]) Vital Signs (Past 12 Hours) Vital Signs Temp Pulse Pulse Resp BP Pulse Ox 10/23/20 07:54 36.9 C 73 18 166/93 H 98 10/23/20 05:23 70 10/23/20 05:05 37.1 C 75 14 137/89 96 10/22/20 23:31 36.5 C 72 20 156/91 H 96 10/22/20 21:59 75 Laboratory Results WBC 4.10, hemoglobin 15.9, hematocrit 46.3, platelet count 130, sodium 135, potassium 3.8, BUN 12, creatinine 1.01, glucose 124, hemoglobin A1c 5.7, troponin less than 0.015, triglycerides 145, cholesterol 182, LDL 69, VLDL 29, HDL [address] of the head negative for acute abnormality. CTA of the head normal. CTA of the neck negative for stenosis, occlusion, or dissection. Noncontrast MRI of the brain reveals mild to moderate scattered T2/flair hyperintensities throughout the subcortical white matter of the cerebral hemispheres likely consistent with chronic microvascular ischemic disease. No evidence of acute or subacute process. These findings were observed by the interpreting radiologist. I reviewed the images as well and agree. An electrocardiogram reveals a normal sinus rhythm with sinus arrhythmia, 85 bpm. Coding Level of Care Code 00095 Inpt Consult Level 5 Diagnoses Hypertensive urgency I16.0 Stroke-like symptoms R29.90
[2020-10-23] MEDS ORDERED: ASPIRIN 81 MG ECTAB PO SCH (09:00)
--- NOTE | 2020-10-23 10:19 | Discharge Summary ---
Date of Service October 23, 2020 Admission HPI Per Admitting Provider Robin Weiner is a 45 year old male with hypertension who presents to the ER with stroke-like symptoms. This morning he has been snowblowing and shovelling snow from 6:30am. At around 12:30pm he went to his truck and started to get dizzy which he feels was like motion sickness and the world was moving around him. He denies any chest pain, shortness of breath, vision loss, diplopia, change in hearing/speech, facial droop, extremity motor weakness or sensory change. He ate a power bar but this did not appear to help. Dizziness was initially intense but then gradually improved, worse whenever he would rotate his head in either direction. He took a dose of carvedilol from a old prescription, although unknown dose with no change in his dizziness. He managed to drive himself however due to continued vertigo on head movement and when he talked to his he was confused about where he had been he came to the ER. He denies any problems understanding his or any problems finding the right word he was more generally confused and not thinking clearly. He previously was under the care of Dr Healy and was treated with hypertension with carvedilol however when he ran out of medication and with the current pa ndemic his clinic visit was cancelled and he never followed up on this. In the ER CT head, CTA head/neck unremarkable. BP 219/125 on arrival treated with Labetalol 5mg IV with resolution of his dizziness (total duration around 2 hours). Telestroke activated - recommended no tPA (presumably due to resolved symptoms), complete stroke workup and aspirin (of note the patient was already taking this prior). He was referred to medicine for admission and ongoing management of TIA/hypertensive emergency. Admission Exam Per Admitting Provider Constitutional: well developed and well nourished; no acute distress Eyes: PERRL, conjunctivae normal, anicteric sclerae normal visual sung by confrontation, EOM intact bilaterally and + nystagmus (both eyes, fast beats to left, L > R lateral gaze) ENMT: external ear and nose normal, oropharynx normal Ears: no hearing impairment (grossly normal), no EAC abnormality, no TM abnormality and no mastoid abnormality Neck: normal visual inspection and trachea midline Respiratory: normal respiratory effort, lungs clear to auscultation Cardiovascular: Rate/Rhythm: regular rate and regular rhythm Heart Sounds: no murmur Vessels: no JVD Extremities: normal capillary refill; no calf tenderness and no pedal edema Gastrointestinal (Abdomen): normal bowel sounds, soft, nontender, no hepatosplenomegaly Musculoskeletal: no cyanosis or clubbing, extremities motor strength 5/5 Skin: no rashes, warm and dry Neurologic: deep tendon reflexes 2+ bilaterally, moves all extremities and awake; no focal motor deficits and not confused Speech / Cognition: normal speech, no expressive aphasia and no receptive aphasia Motor/Sensory: no tremor and no pronator drift Cranial Nerves: PERRL, EOM intact bilaterally, normal facial strength, tongue midline, normal hearing and able to rotate head bilaterally; + abnormal accommodation (reduced) and + nystagmus (as above) Alpha- hallpike did not reproduce vertigo sensation Bi-directional rotation of head reproduced vertigo No vertical scew Psychiatric: A+Ox3, euthymic affect Principal Diagnosis Vertigo secondary to hypertensive emergency complicated by chronic hypertension and medication noncompliance Discharge Exam General: No acute distress HEENT: Normocephalic atraumatic Neck: No significant lymphadenopathy, trachea midline, normal to visual inspection Cardiac: Regular rate and rhythm, normal S1, normal S2, I did not appreciated any significant murmurs rubs or gallops, I did not appreciate any significant pedal edema, No calf tenderness, capillary refill is less than 3 seconds Respiratory: Clear to auscultation bilaterally with symmetrical chest rise, I did not appreciate any significant wheezes, rales, rhonchi, no increased work of breathing GI: Normal bowel sounds, soft, nontender in all 4 quadrants, nondistended MSK: No sensory or motor changes, moves all extremities without issue, extremities are warm and well-perfused Skin: [employer], clean, dry, intact. Neuro: CN II through XII grossly intact, no focal findings, EOMI, PERRLA alert and oriented x4 Psych: Calm, cooperative, logical thought process Discharge Data Allergies Allergy/AdvReac Type Severity Reaction Status Date / Time No Known Allergies Allergy Unverified 10/22/20 15:31 Consultations 10/22/20 16:05 ED Decision to Admit Stat 10/22/20 19:27 Consult Case Management - Discharge Planning Routine Consult Neurology Routine Ordered Studies 10/22/20 14:14 CT head/brain wo con Stat 10/22/20 14:15 CT angio head w con Stat CT angio neck with con Stat 10/22/20 16:27 MR brain wo con Urgent 10/23/20 09:00 MR brain IAC wo/w con Routine Hospital Course (1) Hypertension: Total Time Total Time Spent Total Time Spent (In Minutes): 34.5 Discharge Plan Discharge Items Patient Disposition: Home - Self-Care Reason For Visit: STROKE-LIKE SYMPTOMS Discharge Diagnosis: Vertigo secondary to hypertensive emergency complicated by chronic hypertension and medication noncompliance Activity: Resume your previous activity Non-emergency contact: Primary Care Provider Call non-emergency contact if: you have any medication questions, your symptoms worsen, your pain is unusual for you and your temperature is above 101.5 Follow-up/Referrals: Anselmo Healy MD [Primary Care Provider] - Eben Izaguirre MD [Resident] - Diet: Heart Healthy Ambulatory Orders: Basic Metabolic Panel (Routine) Timeframe: 1 Week Location: Determined by Patient Ordered By: Eben Kirby Attending Provider Instructions: Care instructions: You were admitted to [facility] for treatment of dizziness secondary to hypertensive emergency. Your symptoms were likely secondary to significantly elevated blood pressure as evidenced by improvement in your symptoms upon blood pressure normalization. Given your presentation a stroke work-up was performed and returned to be negative. On discharge he was started on the medication lisinopril 20 mg/day this is medication intended to treat your high blood pressure. Due to the effects of this medication it is important that you obtain laboratory testing in 2 weeks to ensure your kidney function is adequate. We will give you a prescription for these labs. we strongly recommend you follow-up with a primary care provider within 2 weeks of discharge to discuss hypertension, and establish a treatment plan. A discharge summary will be sent to your primary care physician to ensure continuity of care. Please bring this discharge summary with you to your next office appointment so that your provider can review it at that time. Follow-up appointments: - Keep all your follow-up appointments as already scheduled. If you cannot make an appointment, notify your provider. - Please call to request a follow-up appointment with your primary care physician within one week of discharge. Please let us know if you are unable to obtain an appointment -Please schedule follow-up appointment with a primary care provider. Follow-up labs: - Please go to a lab nearest you and obtain the requested lab work. Please have this completed at least 3 hours before your doctor's appointment (or the day before your appointment if possible). -Please obtain a basic metabolic profile in 1 to 2 weeks after discharge Medications: - Your medication list has been reviewed and reconciled upon discharge to ensure accuracy and continuity of care. - You are provided with a list of all your current medications at this time. Please review this list closely and make note of any changes. - Please take all of your medications exactly as prescribed. - Tell your primary care provider if you cannot afford your medications. - Call your primary care provider if you are having any side effects or any other problems. - Call your primary care provider before taking any over the counter medications or supplements, including herbals and vitamins, because some of these may interact with your current medications and/or make your symptoms worse. Symptoms: Please call your primary care provider for symptoms including, but not limited to: fevers (temperatures greater than 100.4), chills, intractable nausea or vomiting, diarrhea, rash, shortness of breath, bleeding, pain, or if you experience any worsening of the symptoms that brought you to the hospital. For EMERGENCY and VERY SERIOUS health-related issues, such as chest pain, shortness of breath, or sudden onset of the symptoms that brought you to the hospital, you may need to call 911 or go directly to the Emergency Room It has been our privilege to take care of you during your hospital stay. And Above All Else Feel Better! Best Wishes, Eben Izaguirre MD PGY2 Resident, Family & Community Medicine [facility] Residency at [facility] - [address], [address] MC: [address] [place] [address] Pending Studies at Discharge: No Stand-Alone Forms: My [facility], Smoking Cessation Medications and DC Order Prescriptions: New lisinopril 20 mg tablet 20 mg PO DAILY 30 Days Qty: 30 RF: 0 Continued acetaminophen [Tylenol] 325 mg Tablet 325 mg PO QID PRN (Reason: Fever Or Pain) RF: 0 aspirin [Aspir-Low] 81 mg Tablet,Delayed Release (Dr/Ec) 81 mg PO DAILY RF: 0 Discharge Orders: Discharge Order (Routine); Ordered 10/23/20 Ordered By: Eben Alvares/Other Patient Handouts: Hypertension Dc, Lisinopril tablets Admission Data Admit Date/Time: 10/22/20 16:37 Attending Provider: Bryant Dinh Admit Provider: Anibal Giordano Primary Care Provider: Anselmo Healy Other Providers: Anibal Giordano ; Parker Hoover Resident Activity Tracking Resident Involvement: Resident Care Provided Care Provided: Adult Hospital Medicine
--- NOTE | 2020-10-23 12:04 | XCELERA ---
[id number]
[2020-10-23] MEDS ORDERED: GADOBUTROL 30ML VIAL IV ONE (12:16)
--- NOTE | 2020-10-23 12:36 | Magnetic Resonance Report ---
MRI OF THE BRAIN INTERNAL AUDITORY CANAL PROTOCOL CLINICAL HISTORY: Vertigo, fast nystagmus to left (?right IAC lesion). COMPARISON STUDY: MRI of the brain October 22, 2020. Head CT and CTA of the head October 22, 2020. TECHNIQUE: Utilizing a 1.5 Celeste magnet and dedicated coil, multiplanar, multiecho imaging of the br ain was performed pre and postcontrast administration with thin cut imaging through the internal quinn tory canals. IV administration of 11 mL of Gadavist contrast was uneventful. FINDINGS: There are no foci of restricted diffusion to suggest acute infarct. No acute intracranial h emorrhage, midline shift or mass effect is present. Brain volume is normal. Ventricular system is nor mal. Basilar cisterns are patent. There are no extra-axial collections. Flow-voids for the major intr acranial vessels are present. There is no mass or abnormal enhancement within the internal auditory c anals. A small bony excrescence adjacent to the left internal auditory canal is no significance. Ther e is no intracranial mass or pathologic enhancement. Multiple small white matter T2 hyperintense foci are again noted. Calvarial signal is normal. There is mild polypoid mucosal thickening of the right maxillary sinus. IMPRESSION: 1. No acute intracranial findings. 2. No abnormalities within the internal auditory canals. 3. Multiple small white matter T2 hyperintense foci. These are nonspecific but favor small vessel dis ease. ACT 112: Negative or not required by law. Electronically signed by: Royal Zhou M.D. 10/23/2020 12:35 PM
--- NOTE | 2020-10-23 16:33 | Billing Data ---
Date of Service October 23, 2020 Coding Level of Care Code D/C Day Management <30 mins
--- NOTE | 2020-10-23 16:33 | Billing Data ---
Date of Service October 23, 2020 Coding Level of Care Code 31043 OBS Care - Discharge Comment obs dc not <30 mins dc. sorry for confusion
== END 2020-10-23 14:40 | disposition home or self-care (01) ==
LOC: ED 13:50 → 2N 13:50 → SUATTDRO 16:37 → 2N 18:39